=== PATIENT | female | born 1935 | race Caucasian/White ===

== ENCOUNTER 2017-01-13 11:33 | Outpatient (CLI) ==
[2013-07-23 11:57] VITALS: BMI 28.1
--- NOTE | 2017-01-13 12:27 | DI ---
EXAM: RIGHT ANKLE THREE VIEWS HISTORY: Pain, previous injury. FINDINGS: Nonstandard patient positioning limits image quality. Cannot exclude a distal fibular fr acture with mild distraction. There is a small fracture at the base of the fifth metatarsal suggest ed. Bones are demineralized. There is no joint effusion. Generalized soft tissue edema. IMPRESSION: Limited exam. Cannot exclude a distal fibular fracture. There appears to be a small fracture at th e base of the fifth metatarsal.
--- NOTE | 2017-01-13 12:27 | DI ---
EXAM: Three views of the right foot. History: Right foot trauma. Comparison: Right ankle radiograph 01/13/2017 Findings: Osteopenia. Diffuse soft tissue swelling. Nondisplaced fracture at the first metatarsal base. The third metatarsal head is flattened. No dislocation. Small plantar spur. Impression: 1. Nondisplaced fracture at the first metatarsal base. 2. Flattening of the third metatarsal head consistent with Freiberg infraction. 3. Diffuse soft tissue swelling.
== END 2017-01-13 11:34 | disposition home or self-care (01) ==
LOC: RAD 11:33
PROVIDERS: ATTEND Emergency Medicine
DX: S99.921A Unspecified injury of right foot, initial encounter (principal); S99.911A Unspecified injury of right ankle, initial encounter

== ENCOUNTER 2017-01-14 13:06 | Outpatient (CLI) | payer OTHER ==
[2013-07-23 11:57] VITALS: BMI 28.1
--- NOTE | 2017-01-14 13:59 | DI ---
EXAM: Right lower leg. Two-view HISTORY: Injury COMPARISON: Radiograph 01/13/2017 FINDINGS: Bones are demineralized. A distal fibular fracture cannot be excluded as described on rad iograph ankle 1 day prior. This region is poorly visualized on the current examination Moderate oste oarthritis of the knee. Mild osteoarthritis of the ankle. Mild posterior calcaneal enthesopathy. S oft tissue calcifications may be vascular atherosclerosis and/or related to venous stasis. IMPERSSION: 1. A distal fibular fracture cannot be excluded as described on radiograph ankle 1 day prior. This region is poorly visualized on the current examination. 2. Osteoarthritis of the knee and ankle. 3. Bones are demineralized.
== END 2017-01-14 13:07 | disposition home or self-care (01) ==
LOC: RAD 13:06
PROVIDERS: ATTEND Emergency Medicine
DX: S89.91XD Unspecified injury of right lower leg, subsequent encounter (principal)

== ENCOUNTER 2017-02-14 10:12 | Inpatient (IN) ==
[2017-02-14 11:53] VITALS: BMI 28.8
[2017-02-14] MEDS ORDERED: TYLENOL PO PRN (12:53)
[2017-02-14] MEDS ORDERED: FENOFIBRATE NANOCRYSTALLIZED 160 MG PO SCH (13:00)
[2017-02-14 13:40] LABS: BASOPHILS % (AUTO) 0.4 % (0.0-3.0); EOSINOPHILS % (AUTO) 0.3 % (0.0-7.0); HEMATOCRIT 31.9 % (37.0-47.0); HEMOGLOBIN 11.2 g/dl (12.0-16.0); IMMATURE GRANULOCYTE % (AUTO) 0.6 % (0.0-5.0); LYMPHOCYTES # (AUTO) 1.1 K/uL (0.60-3.4); LYMPHOCYTES % (AUTO) 9.7 (10.0-50.0); MEAN CORPUSCULAR HEMOGLOBIN 30.1 pg (27.0-31.0); MEAN CORPUSCULAR HGB CONC 35.1 (31.8-35.4); MEAN CORPUSCULAR VOLUME 85.8 fl (81.0-99.0); MONOCYTES # (AUTO) 0.8 K/uL (0.4-2.0); MONOCYTES % (AUTO) 6.9 (0-10); NEUTROPHILS # (AUTO) 8.9 K/ul (2.0-6.9); NEUTROPHILS % (AUTO) 82.1; PLATELET COUNT 230 10^3/uL (140-440); RED BLOOD COUNT 3.72 10^6/ul (4.20-5.40); WHITE BLOOD COUNT 10.84 K/ul (4.6-10.2)
[2017-02-14 13:57] LABS: ALBUMIN 3.2 g/dL (3.4-5.0); ALBUMIN/GLOBULIN RATIO 0.82; ANION GAP 14.7; BILIRUBIN,TOTAL 0.48 mg/dL (0.00-1.20); BUN/CREATININE RATIO 8.69; CALCIUM 9.4 mg/dL (8.2-10.2); CREATININE 0.69 mg/dL (0.60-1.30); POTASSIUM 3.7 mmol/L (3.5-5.10); TOTAL PROTEIN 7.1 g/dL (5.8-8.1); TROPONIN I 0.017 ng/ml (0.0000-0.4000)
--- NOTE | 2017-02-14 14:59 | CT ---
EXAM: CT chest without contrast HISTORY: Shortness of breath and cough COMPARISON: None TECHNIQUE: Serial axial images of the chest were obtained from the lung apices to the upper abdomen without contrast. These were viewed in multiple planes. FINDINGS: The thyroid is normal. The visualized vessels are unremarkable without aneurysm or stenos is. The heart is normal in size without pericardial effusion. There are no pathologically enlarged mediastinal or hilar lymph nodes. There is fluid in the esophagus. There is a njlotwgo-[id number]-[id number] hiatal hernia. The lumen is not well visualized. There is no pneumothorax or pleural effusion. There is airway thickening with central lobular ground -glass and nodularity in the lower lobes in the lingula. Minimal airway thickening is noted in the r ight middle lobe. The airways are patent. There is degenerative disease of the thoracic spine with kyphosis. There is hazy ground-glass in the mid abdominal mesentery. There is a low attenuation exophytic lesion of the superior pole of the rig ht kidney measuring 1.7 cm in diameter. Hounsfield units are consistent with a cyst. IMPRESSION: 1. Airway thickening in the lower lobes and lingula with patchy airway thickening and questionable d eveloping consolidation consistent with small airways infection versus changes of aspiration.. 2. There is a rfujxhkv-bh-hkizs hiatal hernia with the lumen not visualized and soft tissue cannot b e excluded. There is fluid in the esophagus proximal to the hiatal hernia. 3. Hazy ground-glass in the mesentery may represent mild adenitis. The right renal cyst is present.
[2017-02-14] MEDS: ROCEPHIN 1 GM in SODIUM CHLORIDE 50 ML IV SCH (15:20)
[2017-02-14] MEDS: SODIUM CHLORIDE 1,000 ML IV SCH (15:22)
[2017-02-14] MEDS: TESSALON PERLES PO SCH ×2 (15:23→20:46)
[2017-02-14] MEDS: CLARITIN PO SCH (15:23)
[2017-02-14] MEDS: SOLU-MEDROL 40 MG IVP SCH ×2 (15:23→20:48)
[2017-02-14] MEDS: NORVASC PO SCH (15:24)
[2017-02-14] MEDS: ZITHROMAX PO SCH (15:24)
[2017-02-14] MEDS: FERROUS SULFATE PO SCH ×2 (15:24→20:47)
[2017-02-14] MEDS: COLACE PO SCH (15:24)
[2017-02-14] MEDS: DUONEB NEB SCH ×2 (16:28→23:01)
[2017-02-14] MEDS: MUCINEX PO SCH (20:47)
[2017-02-14] MEDS ORDERED: NON-FORMULARY MEDICATION (Ferrous Sulfate [Ferrous Sulfate] 325 MG) PO SCH ×22 (21:00)
[2017-02-14 21:45] LABS: ADD URINE MICROSCOPIC YES; BILIRUBIN,URINE Negative (NEGATIVE); KETONES,URINE Negative (NEGATIVE); LEUKOCYTE ESTERASE ,URINE Trace (NEGATIVE); NITRITE,URINE Negative (NEGATIVE); PH,URINE 7.5 (5-9); PROTEIN,URINE Negative (NEGATIVE); URINE, BLOOD Negative (NEGATIVE)
[2017-02-15] MEDS: SODIUM CHLORIDE 1,000 ML IV SCH ×3 (04:24→21:30)
[2017-02-15] MEDS: SOLU-MEDROL 40 MG IVP SCH ×3 (04:25→21:36)
[2017-02-15] MEDS: DUONEB NEB SCH ×4 (04:58→23:06)
[2017-02-15] MEDS: LASIX TAB PO SCH (06:00)
[2017-02-15] MEDS: PROTONIX PO SCH (06:00)
[2017-02-15 07:49] LABS: BASOPHILS % (AUTO) 0.1 % (0.0-3.0); EOSINOPHILS % (AUTO) 0.1 % (0.0-7.0); HEMATOCRIT 28.6 % (37.0-47.0); HEMOGLOBIN 10.1 g/dl (12.0-16.0); IMMATURE GRANULOCYTE % (AUTO) 1.8 % (0.0-5.0); LYMPHOCYTES # (AUTO) 0.6 K/uL (0.60-3.4); LYMPHOCYTES % (AUTO) 3.3 (10.0-50.0); MEAN CORPUSCULAR HEMOGLOBIN 30.4 pg (27.0-31.0); MEAN CORPUSCULAR HGB CONC 35.3 (31.8-35.4); MEAN CORPUSCULAR VOLUME 86.1 fl (81.0-99.0); MONOCYTES # (AUTO) 0.4 K/uL (0.4-2.0); MONOCYTES % (AUTO) 2.4 (0-10); NEUTROPHILS # (AUTO) 15.7 K/ul (2.0-6.9); NEUTROPHILS % (AUTO) 92.3; PLATELET COUNT 220 10^3/uL (140-440); RED BLOOD COUNT 3.32 10^6/ul (4.20-5.40); WHITE BLOOD COUNT 16.94 K/ul (4.6-10.2)
[2017-02-15 08:00] LABS: ALBUMIN 2.6 g/dL (3.4-5.0); ALBUMIN/GLOBULIN RATIO 0.74; BILIRUBIN,TOTAL 0.32 mg/dL (0.00-1.20); BUN/CREATININE RATIO 12.9; CALCIUM 8.9 mg/dL (8.2-10.2); CREATININE 0.62 mg/dL (0.60-1.30); TOTAL PROTEIN 6.1 g/dL (5.8-8.1)
[2017-02-15] MEDS ORDERED: NON-FORMULARY MEDICATION (Esomeprazole Magnesium [Nexium] 40 MG) PO SCH ×22 (09:00)
[2017-02-15] MEDS ORDERED: LASIX TAB PO SCH (09:00)
[2017-02-15] MEDS: ROCEPHIN 1 GM in SODIUM CHLORIDE 50 ML IV SCH (09:20)
[2017-02-15] MEDS: MUCINEX PO SCH ×2 (09:21→21:36)
[2017-02-15] MEDS: COLACE PO SCH (09:21)
[2017-02-15] MEDS: FERROUS SULFATE PO SCH ×2 (09:21→21:36)
[2017-02-15] MEDS: CLARITIN PO SCH (09:21)
[2017-02-15] MEDS: TESSALON PERLES PO SCH ×3 (09:22→21:36)
[2017-02-15] MEDS: TRIGLIDE PO SCH (09:23)
[2017-02-15] MEDS: ZITHROMAX PO SCH (09:23)
[2017-02-15] MEDS: ZESTRIL PO SCH (09:23)
[2017-02-15] MEDS: NORVASC PO SCH (09:27)
[2017-02-15] MEDS: HUMULIN R SUBCUT PRN ×3 (12:02→20:39)
[2017-02-16 04:30] LABS: BASOPHILS % (AUTO) 0.1 % (0.0-3.0); EOSINOPHILS # (AUTO) 0.1 K/ul (0.0-0.7); EOSINOPHILS % (AUTO) 0.3 % (0.0-7.0); HEMATOCRIT 27.4 % (37.0-47.0); HEMOGLOBIN 9.5 g/dl (12.0-16.0); IMMATURE GRANULOCYTE % (AUTO) 0.7 % (0.0-5.0); LYMPHOCYTES # (AUTO) 0.6 K/uL (0.60-3.4); LYMPHOCYTES % (AUTO) 3.7 (10.0-50.0); MEAN CORPUSCULAR HEMOGLOBIN 29.9 pg (27.0-31.0); MEAN CORPUSCULAR HGB CONC 34.7 (31.8-35.4); MEAN CORPUSCULAR VOLUME 86.2 fl (81.0-99.0); MONOCYTES # (AUTO) 0.8 K/uL (0.4-2.0); NEUTROPHILS # (AUTO) 14.9 K/ul (2.0-6.9); NEUTROPHILS % (AUTO) 90.2; PLATELET COUNT 207 10^3/uL (140-440); RED BLOOD COUNT 3.18 10^6/ul (4.20-5.40); WHITE BLOOD COUNT 16.48 K/ul (4.6-10.2)
[2017-02-16 04:50] LABS: ALBUMIN 2.6 g/dL (3.4-5.0); ALBUMIN/GLOBULIN RATIO 0.76; BILIRUBIN,TOTAL 0.23 mg/dL (0.00-1.20); BUN/CREATININE RATIO 22.03; CALCIUM 9.2 mg/dL (8.2-10.2); CREATININE 0.59 mg/dL (0.60-1.30)
[2017-02-16] MEDS: DUONEB NEB SCH ×4 (05:00→23:52)
[2017-02-16] MEDS: SOLU-MEDROL 40 MG IVP SCH ×3 (06:13→20:28)
[2017-02-16] MEDS: HUMULIN R SUBCUT PRN ×4 (06:14→20:29)
[2017-02-16] MEDS: PROTONIX PO SCH (06:14)
[2017-02-16] MEDS: LASIX TAB PO SCH (06:15)
[2017-02-16] MEDS: TESSALON PERLES PO SCH ×3 (09:37→20:28)
[2017-02-16] MEDS: ROCEPHIN 1 GM in SODIUM CHLORIDE 50 ML IV SCH (09:37)
[2017-02-16] MEDS: NORVASC PO SCH (09:37)
[2017-02-16] MEDS: TRIGLIDE PO SCH (09:37)
[2017-02-16] MEDS: ZESTRIL PO SCH (09:37)
[2017-02-16] MEDS: FERROUS SULFATE PO SCH ×2 (09:37→20:29)
[2017-02-16] MEDS: ZITHROMAX PO SCH (09:38)
[2017-02-16] MEDS: MUCINEX PO SCH ×2 (09:38→20:28)
[2017-02-16] MEDS: COLACE PO SCH (09:38)
[2017-02-16] MEDS: CLARITIN PO SCH (09:38)
[2017-02-16] MEDS: VALIUM PO SCH (20:27)
[2017-02-16] MEDS ORDERED: VALIUM PO SCH (21:00)
[2017-02-16] MEDS: SODIUM CHLORIDE 1,000 ML IV SCH (23:09)
[2017-02-17] MEDS: DUONEB NEB SCH ×4 (05:02→23:10)
[2017-02-17] MEDS: PROTONIX PO SCH (06:00)
[2017-02-17] MEDS: SOLU-MEDROL 40 MG IVP SCH ×3 (06:00→21:11)
[2017-02-17] MEDS: LASIX TAB PO SCH (06:01)
[2017-02-17 06:23] LABS: BASOPHILS % (AUTO) 0.1 % (0.0-3.0); HEMATOCRIT 26.7 % (37.0-47.0); HEMOGLOBIN 9.3 g/dl (12.0-16.0); IMMATURE GRANULOCYTE % (AUTO) 1.3 % (0.0-5.0); LYMPHOCYTES # (AUTO) 1.1 K/uL (0.60-3.4); MEAN CORPUSCULAR HEMOGLOBIN 29.8 pg (27.0-31.0); MEAN CORPUSCULAR HGB CONC 34.8 (31.8-35.4); MEAN CORPUSCULAR VOLUME 85.6 fl (81.0-99.0); MONOCYTES # (AUTO) 0.4 K/uL (0.4-2.0); MONOCYTES % (AUTO) 3.6 (0-10); NEUTROPHILS # (AUTO) 10.4 K/ul (2.0-6.9); PLATELET COUNT 226 10^3/uL (140-440); RED BLOOD COUNT 3.12 10^6/ul (4.20-5.40); WHITE BLOOD COUNT 12.05 K/ul (4.6-10.2)
[2017-02-17] MEDS: HUMULIN R SUBCUT PRN ×4 (06:47→21:17)
[2017-02-17 06:48] LABS: ALBUMIN 2.5 g/dL (3.4-5.0); ALBUMIN/GLOBULIN RATIO 0.81; ANION GAP 12.5; BILIRUBIN,TOTAL 0.2 mg/dL (0.00-1.20); BUN/CREATININE RATIO 22.8; CALCIUM 8.9 mg/dL (8.2-10.2); CREATININE 0.57 mg/dL (0.60-1.30); POTASSIUM 3.5 mmol/L (3.5-5.10); TOTAL PROTEIN 5.6 g/dL (5.8-8.1)
[2017-02-17] MEDS: TRIGLIDE PO SCH (08:52)
[2017-02-17] MEDS: NORVASC PO SCH (08:52)
[2017-02-17] MEDS: ROCEPHIN 1 GM in SODIUM CHLORIDE 50 ML IV SCH (08:52)
[2017-02-17] MEDS: CLARITIN PO SCH (08:52)
[2017-02-17] MEDS: TESSALON PERLES PO SCH ×3 (08:53→21:11)
[2017-02-17] MEDS: COLACE PO SCH (08:53)
[2017-02-17] MEDS: FERROUS SULFATE PO SCH ×2 (08:53→21:10)
[2017-02-17] MEDS: VALIUM PO SCH ×2 (08:53→21:10)
[2017-02-17] MEDS: MUCINEX PO SCH ×2 (08:53→21:10)
[2017-02-17] MEDS: ZESTRIL PO SCH (08:53)
[2017-02-17] MEDS: ZITHROMAX PO SCH (08:53)
[2017-02-17 11:47] LABS: OCCULT BLOOD INTERNAL QC 1 INTERNAL QC VALID; OCCULT BLOOD SAMPLE 1 POSITIVE (NEGATIVE)
--- NOTE | 2017-02-17 13:14 | RS.PTINEVL ---
Subjective - Patient information Date of Evaluation: 02/17/17 Date of Arrival on Unit: 02/14/17 Admitted From:: Home Usual Living Arrangement: Alone Living Arrangement Comments: pt lives alone in housing, no steps. pt has [employer] worker 3 hours a day 5 days a week. Home Environment: Apartment Medical History: Hypertension, Arthritis Medical History Comments:: chronic kidney disease, dyslipidemia LATEX ALLERGY?: No Surgical History: Hip Replacement Subjective Information/ Patient Comments:: pt admitted from home after being home approx [place] [facility] [place] being [place] [facility] [place] with fx R foot. pt dx URI, pneumonia, possible aspiration, Large hiatal hernia, possible mild adenitis - Level of function Prior to this admission, the patient could do the following:: Independent Ambulation Abilities prior to this admission: patient had assist with bathing, cooking and cleaning at home 5x a week. Current Level of Function: Partially Dependent Current Equipment Used at Home: Rolling walker Interventions - Objective Patient Orientation: Person, Place, Time, Situation Current Interventions: IV's, Oxygen, Telemetry Range of Motion - ROM Right Upper Extremity AROM: WFL's Left Upper Extremity AROM: WFL's Right Lower Extremity AROM: Slight limitation (WFL's except R ankle DF to neutral only) Left Lower Extremity AROM: WFL's Muscle Strength - Muscle Strength Right Upper Extremity Strength: Mild Weakness (shld flex 3+/5, elbow flex/ext 4- /5, decreased auditing coder strength) Left Upper Extremity Strength: Mild Weakness (shld flex 3+/5, elbow flex/ext 3+/ 5 decreased auditing coder strength) Right Lower Extremity Strength: Mild Weakness (RLE 4/5, except R ankle DF3/5, PF 4-/5) Left Lower Extremity Strength: Mild Weakness (LLE 4/5) Sensation - Sensation Right Upper Extremity Sensation: Intact/Normal Left Upper Extremity Sensation: Intact/Normal Right Lower Extremity Sensation: Impaired Left Lower Extremity Sensation: Impaired Balance - Sitting Balance and Reactions Static Sitting Balance: Good Dynamic Sitting Balance: Fair - Standing Balance and Reactions Static Standing Balance: Fair Dynamic Standing Balance: Fair - Comments Balance Assessment Comments: TUG 52 secs Functional Mobility - Bed Mobility Rolling R/L: CGA Scooting: CGA Supine to Sit: Min Assist Sit to Supine: Min Assist - Transfers Sit to Stand: Min Assist Stand to Sit: Min Assist - Safety Awareness Safety Awareness: Good Ambulation - Ambulation Assistive Device Used: Rolling Walker Orthotic/Prosthetic Device: No Distance: 130ft Assistance needed with Ambulation: CGA Gait Deviations: Forward posture, Short stride Ambulation Comments: pt requires verbal cues to correct posture as well as positioning of rwx. Treatment time - Time with patient Total treatment time: 29 (pt performed BLE AP, LAQ, seated hip flex, HS, hip abd /add x 15 reps) Patient Education - Education Patient Education: Education of Plan of Care Teaching Recipient: Patient Teaching Methods: Discussion, Demonstration Assessment - Assessment Problem List:: Decreased level of function, Decreased safety/Risk of falls, Weakness Rehab Potential: Good Further Therapy Indicated?: Yes Short Term Goals GOAL #1: pt to transfer sup to/from sit to/from stand SBA Goal to be met by: 02/19/17 GOAL #2: pt demonstrate independence with rolling and scooting up in bed. Goal to be met by: 02/19/17 GOAL #3: pt amb with rwx 150ft with no loss of balance with CGA Goal to be met by: 02/19/17 Long-Term Goals GOAL #1: pt transfer sup to/from sit to/from stand independently Goal to be met by: 02/22/17 GOAL #2: pt amb with rwx functional distances SBA with no loss of balance Goal to be met by: 02/22/17 GOAL #3: pt demonstrate improved dyn stand balance as noted by TUG < 45secs Goal to be met by: 02/22/17 Plan Plan of Care: Therapeutic EX, Therapeutic Activity Other:: Gait training Frequency of Treatment: 1-2 X day, as tolerated Duration of Treatment: 1 Week Anticipated Discharge Destination: Home (home with home care PT)
[2017-02-17] MEDS: SODIUM CHLORIDE 1,000 ML IV SCH ×2 (14:01→23:35)
--- NOTE | 2017-02-17 15:17 | PN ---
DATE OF SERVICE:02/15/17 SUBJECTIVE: The patient was admitted from the [facility] for the upper respiratory infection and the questionable pneumonia. CAT scan showed questionable infiltrates in the lung and a large hiatal hernia. Today morning she says that she has been breathing better with less coughing but still weak and tired. REVIEW OF SYSTEMS: CONSTITUTIONAL: No fever, no chills. HEENT: Normal. ENDOCRINE: No weight gain, no weight loss. CVS: No angina symptoms. No CHF symptoms. No palpitations. No atypical chest pain for CAD. No shortness of breath. No PND, no orthopnea. RESPIRATORY: No cough, no hemoptysis. GI: No nausea, no vomiting. No abdominal pain. : No hematuria. No polyuria. MUSCULOSKELETAL:. No joint swelling. PSYCHIATRIC: Not anxious. No depression. No suicidal thoughts. No homicidal thoughts. SKIN: Intact. No rash. PHYSICAL EXAMINATION: V/S: Blood pressure 117/70, respiratory rate 18, heart rate 87, temperature 97.6 with saturation 96% on 2 liters. HEENT: Normocephalic, atraumatic. Mucosa dry. Pallor positive. No icterus. NECK: Supple. No JVD, no carotid bruit. No lymphadenopathy. LUNGS: Bilateral entry is decreased with basilar crackles. No rales or rhonchi. HEART: S1, S2 normal. No S3. No murmur, gallop or regurgitation. ABDOMEN: Soft, nontender. Bowel sounds active. No rigidity. No rebound or guarding. No CVA tenderness. EXTREMITIES: No clubbing, cyanosis or pedal edema. MUSCULOSKELETAL: No joint swelling. NEUROLOGIC: Awake, alert, oriented times three. No focal deficit. LYMPHATIC: No lymph nodes palpable. SKIN: Intact. LABS: Sodium 130, potassium 4.0, chloride 96, bicarb 25, BUN 8, creatinine 0.62, glucose 300, WBC 16.94, hgb 10.1, hct 28.6, plt count 220 and urine negative. ASSESSMENT: 1. Community acquired pneumonia 2. Large Hiatal hernia 3. Anemia rule out GI bleed 4. Hyperglycemia from the steroids 5. Hypertension PLAN: 1. Will do A1c 2. Continue Rocephin and Azithromycin 3. DUO NEBS 4. Tessalon Perles 5. IV fluids will decrease them 40ml per hour 6. Will follow the patient in daily rounds. TIME SPENT: More than 35 minutes MTDD
--- NOTE | 2017-02-17 16:31 | DI ---
Exam: Single x-ray of the chest. Comparison: CT chest performed 02/14/2017. Reason for exam: Pneumonia. FINDINGS: No pneumothorax. Layering density in the right lung base with patchy airspace opacities bi laterally. The cardiac silhouette is not enlarged. The imaged osseous structures appear grossly unr emarkable without acute fracture. Impression: Imaging findings are consistent with a right-sided pleural effusion with basilar atelectasis/pneumoni a.
[2017-02-18 00:03] LABS: OCCULT BLOOD INTERNAL QC 2 INTERNAL QC VALID; OCCULT BLOOD INTERNAL QC 3 INTERNAL QC VALID; OCCULT BLOOD SAMPLE 2 NO SPECIMEN RECEIVED (NEGATIVE); OCCULT BLOOD SAMPLE 3 NO SPECIMEN RECEIVED (NEGATIVE)
[2017-02-18] MEDS: DUONEB NEB SCH ×4 (04:47→23:10)
[2017-02-18 05:29] LABS: BASOPHILS % (AUTO) 0.1 % (0.0-3.0); HEMATOCRIT 31.2 % (37.0-47.0); HEMOGLOBIN 10.6 g/dl (12.0-16.0); LYMPHOCYTES # (AUTO) 1.1 K/uL (0.60-3.4); LYMPHOCYTES % (AUTO) 12.8 (10.0-50.0); MEAN CORPUSCULAR HEMOGLOBIN 29.7 pg (27.0-31.0); MEAN CORPUSCULAR VOLUME 87.4 fl (81.0-99.0); MONOCYTES # (AUTO) 0.4 K/uL (0.4-2.0); MONOCYTES % (AUTO) 4.2 (0-10); NEUTROPHILS # (AUTO) 6.8 K/ul (2.0-6.9); NEUTROPHILS % (AUTO) 81.9; PLATELET COUNT 259 10^3/uL (140-440); RED BLOOD COUNT 3.57 10^6/ul (4.20-5.40); WHITE BLOOD COUNT 8.25 K/ul (4.6-10.2)
[2017-02-18] MEDS: LASIX TAB PO SCH (05:40)
[2017-02-18] MEDS: SOLU-MEDROL 40 MG IVP SCH ×3 (05:40→21:00)
[2017-02-18] MEDS: PROTONIX PO SCH ×2 (05:40→16:11)
[2017-02-18 05:48] LABS: ALBUMIN 2.7 g/dL (3.4-5.0); ALBUMIN/GLOBULIN RATIO 0.87; ANION GAP 14.9; BILIRUBIN,TOTAL 0.25 mg/dL (0.00-1.20); BUN/CREATININE RATIO 27.11; CALCIUM 9.1 mg/dL (8.2-10.2); CREATININE 0.59 mg/dL (0.60-1.30); POTASSIUM 3.9 mmol/L (3.5-5.10); TOTAL PROTEIN 5.8 g/dL (5.8-8.1)
[2017-02-18] MEDS: HUMULIN R SUBCUT PRN ×4 (06:35→21:00)
[2017-02-18] MEDS: ROCEPHIN 1 GM in SODIUM CHLORIDE 50 ML IV SCH (09:23)
[2017-02-18] MEDS: COLACE PO SCH (09:27)
[2017-02-18] MEDS: FERROUS SULFATE PO SCH ×2 (09:27→21:01)
[2017-02-18] MEDS: ZESTRIL PO SCH (09:27)
[2017-02-18] MEDS: MUCINEX PO SCH ×2 (09:27→21:01)
[2017-02-18] MEDS: VALIUM PO SCH ×2 (09:28→21:01)
[2017-02-18] MEDS: CLARITIN PO SCH (09:29)
[2017-02-18] MEDS: TRIGLIDE PO SCH (09:29)
[2017-02-18] MEDS: NORVASC PO SCH (09:30)
[2017-02-18] MEDS: ZITHROMAX PO SCH (09:30)
[2017-02-18] MEDS: TESSALON PERLES PO SCH ×3 (09:30→21:01)
--- NOTE | 2017-02-18 11:43 | PN ---
DATE OF SERVICE: 02/16/17 SUBJECTIVE: The patient was admitted with COPD exacerbation and bronchitis/pneumonia. The CAT scan also showed the huge hiatal hernia with a lot of fluid there. Still having cough and congestion and getting clear to yellow phlegm. The hgb is gradually trending down. Hgb initially was 11.2 now it is 9.5. BUN and creatinine is normal. REVIEW OF SYSTEMS: CONSTITUTIONAL: No fever, no chills. HEENT: Normal. ENDOCRINE: No weight gain, no weight loss. CVS: No angina symptoms. No CHF symptoms. No palpitations. No atypical chest pain for CAD. No shortness of breath. No PND, no orthopnea. RESPIRATORY: No cough, no hemoptysis. GI: No nausea, no vomiting. No abdominal pain. : No hematuria. No polyuria. MUSCULOSKELETAL:. No joint swelling. PSYCHIATRIC: Not anxious. No depression. No suicidal thoughts. No homicidal thoughts. SKIN: Intact. No rash. PHYSICAL EXAMINATION: V/S: Blood pressure 129/62, respiratory rate 24, heart rate 86 and temperature 98.2 with saturation 98%. HEENT: Normocephalic, atraumatic. Mucosa dry. Sinus congestion is seen. NECK: Supple. No JVD, no carotid bruit. No lymphadenopathy. LUNGS: Decreased and basilar crackles. No rales or rhonchi. HEART: S1, S2 normal. No S3. No murmur, gallop or regurgitation. ABDOMEN: Soft, nontender. Bowel sounds active. No rigidity. No rebound or guarding. No CVA tenderness. EXTREMITIES: No clubbing, cyanosis or pedal edema. MUSCULOSKELETAL: No joint swelling. NEUROLOGIC: Awake, alert, oriented times three. No focal deficit. LYMPHATIC: No lymph nodes palpable. SKIN: Intact. LABS: Sodium 132, potassium 4.0, chloride 99, bicarb 23, BUN 13, creatinine 0.59, WBC 16.48, hgb 9.5, hct 27.4 and plt count 207. ASSESSMENT: 1. BOWLING [employer] INST[employer]ER exacerbation secondary the pneumonia 2. Large hiatal hernia 3. Anemia rule out GI bleed, will do the anemia profile, stool occult blood test 4. Coronary artery disease 5. Hypertension 6. Recent history of the right ankle fracture 7. Yee's esophagus 8. Hiatal hernia PLAN: 1. Continue the Rocephin and DUO NEBS 2. IV fluids at 40ml per hour 3. Solu-Medrol 40mg twice a day 4. Lasix 20mg Po daily 5. Daily I&O's Will follow the patient in daily rounds. TIME SPENT: More than 30 minutes MTDD
--- NOTE | 2017-02-18 14:16 | RS.BEDDYS ---
Subjective Number of treatment sessions: 1 Date of Evaluation: 02/18/17 Date of Onset/Injury/Change in Status: 02/14/17 Surgery Performed?: No Treatment Diagnosis: Dysphagia Prior Level of Function.....Patient was independent with: ADL's (Prior to admission the patient had recently discharged home from a retirement facility (approx 3-4) days ago completing ADL's with modified independence. The patient reported that she has assistance 5x/wk from senior services who complete home making tasks for her.) Current Level of Function: The patient is an 81 year old female who was admitted to [facility] on 02/14/17 from [facility] for increased shortness of breath and cough. The patient was referred for ST evaluation due to reports of difficulty swallowing medications, history of hiatal hernia and Yee's esophagus. The patient is currently receiving a regular diet with thin liquid and reports that when home she consumes regular,soft foods. It should be noted that the patient is able to verbalize foods that cause irritation within the esophagus and avoids when possible. Current Diet: The patient is currently receiving a regular diet with thin liquids. Current Subjective/complaints:: Nursing reports wet vocal quality, large, fluid- filled hiatal hernia and Yee's esophagus. Medical History Comments:: The patient was admitted to [facility] for COPD exacerbation secondary to pneumonia. The patient's medical history is also significant for large hiatal hernia, HTN, Yee's esophagus, hyperglycemia from steriods Hx Home Medications: Current medications include Tylenol, Duoneb, Norvasc, Zithromax, Tessalon Perles, Valium, Lasix, Mucinex, Zestril, Protonix. Please refer to chart for complete list of home/current medications. Patient's Goals: The patient will demonstrate safe swallowing of regular solids with thin liquids using compensatory strategies independently to reduce s/s of wet/gurgle vocal quality. General Information - General Denture Type: Full- Upper & Lower Patient Orientation: Situation Ability to Follow Directions: Excellent Is Patient able to Repeat Directions?: Yes Oral Expression Ability: No Impairment - Voice Voice Quality: Weak (The patient demonstrated wet/gurgle vocal quality throughout the entire visit which was cleared with cues to clear and swallow. ) Voice Pitch: Normal Voice Loudness: Normal Oral-Facial Assessment - Face Facial Symmetry: Symmetrical Facial Movement: Controlled - Dental/Labial Mouth Occlusion: Normal Teeth Characteristics: Dental Appliance (Patient had upper and lower dentures present during this evaluation. ) Lip Protrusion: Normal Lip Retraction: Normal Puff Cheeks: Normal - Lingual Protrusion: Weak Retraction: Weak Tip Lateralization: Weak Repeated Tip Lateralization: Weak Tip Elevation: Weak Repeated Tip Elevation: Weak (The patient demonstrates weak lingual strength/ ROM resulting in minimal amounts of stasis present after swallow. Patient was independent with clearing stasis with double swallow or liquid wash.) Food Presentation - Solids Food Presented: Regular (Patient presented with regular solids via 1/2 tsp demontrating decreased manipulation resulting in minimal amounts of stasis present after propulsion. The patient was independent with clearing stasis using double swallow or liquid wash.) - Liquids Liquid Presented: Thin (The patient consumed thin liquids via cup and straw demonstrating no overt s/s of aspiration or difficulty.) - Recommendations: Dysphagia Evaluation Dietary Recommendations: Normal, Dysphagia Mechanical Soft (The patient will receive mechanical soft solids (per her request) with thin liquids. The patient may receive regular solids upon request as swallow abilites are within functional limits for both consistencies. ) Dysphagia Swallow Precautions/Strategies: Small Bites and Sips, Alternate Liquids/Solids - Summary Dysphagia Evaluation Summary: The patient was seen this date for bedside dysphagia evaluation due nursing reports of wet vocal quality, large, fluid- filled hiatal hernia and hx of Barretts esophagus. The patient was admitted on 02/14/17 from [facility] due to increased shortness of breath and cough. The patient is currently receiving a regular diet with thin liquids and is independent with self feeding. The patient reported to the bar helper that at times she uses a chopper when at home. Oral [facility] assessment revealed the patient to have upper and lower dentures present. The patient demonstrated labial strength that is within functional limits. Mild weakness in lingual strength was noted with protrusion/retraction, lateralization and elevation. Decreased lingual strength impacts bolus manipulation and formation resulting in minimal amounts of stasis present after swallow completion. The patient was independent with clearing stasis using liquid wash and/or double swallow. The patient was presented with regular solids and as aforementioned demonstrated decreased bolus manipulation and formation abilities resulting in minimal amounts of stasis after swallow completion. The patient was independent with use of double swallow and/or liquid wash. The patient was also presented with thin liquids via cup and straw demonstating timely propulsion and no overt s/s of aspiration or difficulty. It should be noted that the patient did display wet/gurgle vocal quality throughout the evaluation which did not appear to be entirely related to swallowing as it was exhibited throughout conversation. Education was performed with the patient on continuing to use compensatory strategies to clear stasis. Education was also performed with the patient on increasing awareness of wet vocal quality and implementing throat clear to reduce/eliminate wetness. Due to history of Yee's esophagus, GERD and fluid -filled hiatal hernia medication review was suggested GERD could be contributing to the wet vocal quality observed. The bar helper was also consulted and asked to visit with the patient to discuss proper management of GERD. Further Therapy Indicated?: No Comments: Education was performed with the patient that no further [employer] SPECIALIST services were recommended at this time; however, if the pneumonia did not improve with medications and GERD management further modifications and services may be warranted. Rehab Potential: Good Functional Reporting G Codes: G8996 Swallow functional limitation at the time of this evaluation is documented as within functional limits 0-19% impaired. Severity Impairment Rationale: 0-19% impaired. Plan Duration of Treatment: One Time Treatment Frequency of Treatment: One time treatment Anticipated Discharge Destination: Home
[2017-02-18] MEDS: SODIUM CHLORIDE 1,000 ML IV SCH ×2 (16:20→21:42)
[2017-02-19] MEDS: DUONEB NEB SCH ×4 (05:05→22:45)
[2017-02-19 05:23] LABS: BASOPHILS % (AUTO) 0.1 % (0.0-3.0); HEMATOCRIT 30.3 % (37.0-47.0); HEMOGLOBIN 10.3 g/dl (12.0-16.0); IMMATURE GRANULOCYTE % (AUTO) 1.4 % (0.0-5.0); LYMPHOCYTES # (AUTO) 1.5 K/uL (0.60-3.4); LYMPHOCYTES % (AUTO) 13.9 (10.0-50.0); MEAN CORPUSCULAR HEMOGLOBIN 29.6 pg (27.0-31.0); MEAN CORPUSCULAR VOLUME 87.1 fl (81.0-99.0); MONOCYTES # (AUTO) 0.6 K/uL (0.4-2.0); MONOCYTES % (AUTO) 5.8 (0-10); NEUTROPHILS # (AUTO) 8.3 K/ul (2.0-6.9); NEUTROPHILS % (AUTO) 78.8; PLATELET COUNT 269 10^3/uL (140-440); RED BLOOD COUNT 3.48 10^6/ul (4.20-5.40); WHITE BLOOD COUNT 10.56 K/ul (4.6-10.2)
[2017-02-19] MEDS: LASIX TAB PO SCH (05:57)
[2017-02-19] MEDS: PROTONIX PO SCH ×2 (05:57→17:48)
[2017-02-19] MEDS: SOLU-MEDROL 40 MG IVP SCH ×3 (05:57→21:19)
[2017-02-19 05:58] LABS: ALBUMIN 2.5 g/dL (3.4-5.0); ALBUMIN/GLOBULIN RATIO 0.86; ANION GAP 13.1; BILIRUBIN,TOTAL 0.27 mg/dL (0.00-1.20); BUN/CREATININE RATIO 30.5; CALCIUM 8.8 mg/dL (8.2-10.2); CREATININE 0.59 mg/dL (0.60-1.30); POTASSIUM 4.1 mmol/L (3.5-5.10); TOTAL PROTEIN 5.4 g/dL (5.8-8.1)
[2017-02-19] MEDS ORDERED: ROBITUSSIN AC SYRUP PO SCH (09:00)
[2017-02-19] MEDS: TESSALON PERLES PO SCH ×3 (09:03→20:48)
[2017-02-19] MEDS: ROCEPHIN 1 GM in SODIUM CHLORIDE 50 ML IV SCH (09:03)
[2017-02-19] MEDS: CLARITIN PO SCH (09:04)
[2017-02-19] MEDS: ZESTRIL PO SCH (09:04)
[2017-02-19] MEDS: TRIGLIDE PO SCH (09:04)
[2017-02-19] MEDS: NORVASC PO SCH (09:04)
[2017-02-19] MEDS: FERROUS SULFATE PO SCH ×2 (09:04→20:47)
[2017-02-19] MEDS: COLACE PO SCH (09:04)
[2017-02-19] MEDS: MUCINEX PO SCH ×2 (09:04→20:48)
[2017-02-19] MEDS: VALIUM PO SCH ×2 (09:05→20:48)
[2017-02-19] MEDS: ROBITUSSIN DM SYRUP PO SCH ×2 (09:20→20:47)
[2017-02-19] MEDS: HUMULIN R SUBCUT PRN ×3 (11:36→20:47)
--- NOTE | 2017-02-19 11:38 | DI ---
EXAM: Chest one view HISTORY: Pneumonia COMPARISON: 02/17/2017 TECHNIQUE: Single view of the chest was performed FINDINGS: Mild bibasilar atelectasis and/or consolidation, slightly improved. Trace right pleural e ffusion. No visible pneumothorax. Heart and mediastinal contour unchanged IMPRESSION: Trace right pleural effusion. Mild bibasilar atelectasis and/or pneumonia, slightly imp roved from prior examination.
--- NOTE | 2017-02-19 14:53 | RS.OTINEVL ---
Subjective - Patient information Date of Evaluation: 02/19/17 Date of Arrival on Unit: 02/17/17 Usual Living Arrangement: Alone Living Arrangement Comments: Pt has addus coming for 3 hours a day, 5days a week for personal assistance. Home Environment: House Medical History: Hypertension, Arthritis Medical History Comments:: The patient was admitted to [facility] for COPD exacerbation secondary to pneumonia. The patient's medical history is also significant for large hiatal hernia, HTN, Yee's esophagus, hyperglycemia from steriods Subjective Information/ Patient Comments:: "I just have trouble getting up." "I am going home from here. I am not going to go back down here to the shelter." - Level of function Prior to this admission, the patient could do the following:: Independent Ambulation Abilities prior to this admission: Pt reports when she was a patient at [facility] she was able to get up and walk with her rollator walker. Since she became sick with pneumonia, she has had increased difficulty of sit to stand. Current Level of Function: Partially Dependent Comments: Is not able to get up from bed side commode independently or her chair. Current Equipment Used at Home: Rolling walker Pain Assessment - Pain Pain Score: 4 Side: right Pain Location Body Site: Elbow Pain Aggravating Factors: ADL's, Changing Position, Walking Pain Alleviating Factors: Medication Interventions - Objective Patient Orientation: Person, Place, Time, Situation Current Interventions: IV's, Oxygen, Telemetry Interventions - ROM Left Upper Extremity AROM: WFL's - Strength Right Upper Extremity Strength: Mild Weakness Left Upper Extremity Strength: Mild Weakness - Sensation Right Upper Extremity Sensation: Intact/Normal Left Upper Extremity Sensation: Intact/Normal Balance - Sitting Balance Static Sitting Balance: Good Dynamic Sitting Balance: Fair - Standing Balance Static Standing Balance: Poor Dynamic Standing Balance: Poor - Comments Balance Assessment Comments: Pt is weak and would benefit from skilled OT to increase independence and safety of functional transfers. ADL Skills - Self Feeding Self Feeding: Independent - Grooming Grooming: Supervision - Bathing Bathing UE: Min Assist Bathing LE: Min Assist, Max Assist - Dressing Dressing UE: Supervision Dressing LE: Max Assist - Toilet Management Toileting Management: Min Assist Functional Mobility - Bed Mobility Rolling R/L: Independent Scooting: Independent Supine to Sit: Independent Sit to Supine: Independent - Transfers Sit to Stand: Max Assist, 1 person assist Stand to Sit: Min Assist Stand Pivot Transfers: Max Assist - Ambulation Weight Bearing Status: FWB Assistive Device Used: Rollator Assistance needed with Ambulation: Min Assist - Safety Awareness Safety Awareness: Good Additional Treatment Performed - Additional units charged ADL: 15 - Time with patient Total treatment time: 27 Activities Patient Interests:: Watching Television Patient Education Patient Education: Education of diagnosis, Home Exercise Program Teaching Recipient: Patient Teaching Methods: Discussion Assessment Problem List:: Requires training/education, Weakness, Pain limits previous level of function Rehab Potential: Good Further Therapy Indicated?: Yes Short Term Goals - Goals GOAL 1: Pt to increase sit to stand to Moderate assistance. Goal to be met by: 02/26/17 GOAL 2: Pt to increase activity tolerance to 15 minutes to increase (I) of ADLS. Goal to be met by: 02/26/17 GOAL 3: Pt to increase BUE strength to 4/5 Goal to be met by: 02/26/17 Skilled Nursing Goals GOAL 1: Pt to increase sit to stand to Moderate assistance. Goal to be met by: 03/04/17 GOAL 2: Pt to increase activity tolerance to 20 minutes to increase (I) of ADLS. Goal to be met by: 03/04/17 GOAL 3: Pt to increase BUE strength to 4+/5 Goal to be met by: 03/04/17 Plan Plan of Care: Therapeutic EX, Neuromuscular Re-Educ, Therapeutic Activity, Self- Care/Home Management Modalities: Hot Pack, Ultrasound Frequency of Treatment: 1-2 X day, as tolerated Duration of Treatment: 2 Weeks Anticipated Discharge Destination: Home
[2017-02-19] MEDS: SODIUM CHLORIDE 1,000 ML IV SCH (21:58)
[2017-02-20] MEDS: DUONEB NEB SCH ×4 (04:58→22:43)
[2017-02-20 05:11] LABS: BASOPHILS % (AUTO) 0.2 % (0.0-3.0); HEMATOCRIT 31.4 % (37.0-47.0); HEMOGLOBIN 10.6 g/dl (12.0-16.0); IMMATURE GRANULOCYTE % (AUTO) 1.9 % (0.0-5.0); LYMPHOCYTES # (AUTO) 1.5 K/uL (0.60-3.4); LYMPHOCYTES % (AUTO) 12.9 (10.0-50.0); MEAN CORPUSCULAR HEMOGLOBIN 29.4 pg (27.0-31.0); MEAN CORPUSCULAR HGB CONC 33.8 (31.8-35.4); MEAN CORPUSCULAR VOLUME 87.2 fl (81.0-99.0); MONOCYTES # (AUTO) 0.5 K/uL (0.4-2.0); MONOCYTES % (AUTO) 4.2 (0-10); NEUTROPHILS # (AUTO) 9.2 K/ul (2.0-6.9); NEUTROPHILS % (AUTO) 80.8; PLATELET COUNT 254 10^3/uL (140-440); WHITE BLOOD COUNT 11.32 K/ul (4.6-10.2)
[2017-02-20 05:45] LABS: ALBUMIN 2.6 g/dL (3.4-5.0); ALBUMIN/GLOBULIN RATIO 0.93; ANION GAP 12.1; BILIRUBIN,TOTAL 0.29 mg/dL (0.00-1.20); BUN/CREATININE RATIO 25.8; CALCIUM 8.8 mg/dL (8.2-10.2); CREATININE 0.62 mg/dL (0.60-1.30); POTASSIUM 4.1 mmol/L (3.5-5.10); TOTAL PROTEIN 5.4 g/dL (5.8-8.1)
[2017-02-20] MEDS: PROTONIX PO SCH ×2 (05:48→16:56)
[2017-02-20] MEDS: SOLU-MEDROL 40 MG IVP SCH ×4 (05:48→21:12)
[2017-02-20] MEDS: LASIX TAB PO SCH (05:48)
[2017-02-20] MEDS: HUMULIN R SUBCUT PRN ×3 (05:56→21:16)
[2017-02-20] MEDS: ROBITUSSIN DM SYRUP PO SCH ×2 (08:21→21:16)
[2017-02-20] MEDS: FERROUS SULFATE PO SCH ×2 (08:22→20:08)
[2017-02-20] MEDS: NORVASC PO SCH (08:22)
[2017-02-20] MEDS: CLARITIN PO SCH (08:22)
[2017-02-20] MEDS: COLACE PO SCH (08:22)
[2017-02-20] MEDS: TESSALON PERLES PO SCH ×3 (08:22→20:08)
[2017-02-20] MEDS: MUCINEX PO SCH ×2 (08:22→20:07)
[2017-02-20] MEDS: ZESTRIL PO SCH (08:22)
[2017-02-20] MEDS: TRIGLIDE PO SCH (08:22)
[2017-02-20] MEDS: ROCEPHIN 1 GM in SODIUM CHLORIDE 50 ML IV SCH (08:23)
[2017-02-20] MEDS: VALIUM PO SCH ×2 (08:23→20:08)
[2017-02-20 09:08] LABS: OCCULT BLOOD INTERNAL QC 1 INTERNAL QC VALID; OCCULT BLOOD SAMPLE 1 NEGATIVE (NEGATIVE)
[2017-02-20] MEDS: KEFLEX PO SCH (20:07)
[2017-02-21] MEDS: SODIUM CHLORIDE 1,000 ML IV SCH (00:05)
[2017-02-21] MEDS: DUONEB NEB SCH ×4 (05:13→23:19)
[2017-02-21] MEDS: SOLU-MEDROL 40 MG IVP SCH ×3 (05:43→21:42)
[2017-02-21] MEDS: PROTONIX PO SCH ×2 (05:43→16:11)
[2017-02-21] MEDS: LASIX TAB PO SCH (05:43)
[2017-02-21 06:34] LABS: BASOPHILS % (AUTO) 0.3 % (0.0-3.0); HEMATOCRIT 32.1 % (37.0-47.0); HEMOGLOBIN 10.9 g/dl (12.0-16.0); IMMATURE GRANULOCYTE % (AUTO) 2.5 % (0.0-5.0); LYMPHOCYTES # (AUTO) 1.7 K/uL (0.60-3.4); LYMPHOCYTES % (AUTO) 12.9 (10.0-50.0); MEAN CORPUSCULAR HEMOGLOBIN 29.4 pg (27.0-31.0); MEAN CORPUSCULAR VOLUME 86.5 fl (81.0-99.0); MONOCYTES # (AUTO) 0.6 K/uL (0.4-2.0); MONOCYTES % (AUTO) 4.7 (0-10); NEUTROPHILS # (AUTO) 10.6 K/ul (2.0-6.9); NEUTROPHILS % (AUTO) 79.6; PLATELET COUNT 250 10^3/uL (140-440); RED BLOOD COUNT 3.71 10^6/ul (4.20-5.40); WHITE BLOOD COUNT 13.28 K/ul (4.6-10.2)
[2017-02-21 06:52] LABS: ALBUMIN 2.7 g/dL (3.4-5.0); ANION GAP 13.5; BILIRUBIN,TOTAL 0.28 mg/dL (0.00-1.20); BUN/CREATININE RATIO 32.07; CALCIUM 8.6 mg/dL (8.2-10.2); CREATININE 0.53 mg/dL (0.60-1.30); POTASSIUM 3.5 mmol/L (3.5-5.10); TOTAL PROTEIN 5.4 g/dL (5.8-8.1)
[2017-02-21 07:41] LABS: OCCULT BLOOD INTERNAL QC 2 INTERNAL QC VALID; OCCULT BLOOD INTERNAL QC 3 INTERNAL QC VALID; OCCULT BLOOD SAMPLE 2 NO SPECIMEN RECEIVED (NEGATIVE); OCCULT BLOOD SAMPLE 3 NO SPECIMEN RECEIVED (NEGATIVE)
[2017-02-21] MEDS: COLACE PO SCH (08:19)
[2017-02-21] MEDS: VALIUM PO SCH ×2 (08:20→21:03)
[2017-02-21] MEDS: NORVASC PO SCH (08:20)
[2017-02-21] MEDS: FERROUS SULFATE PO SCH ×2 (08:20→21:03)
[2017-02-21] MEDS: KEFLEX PO SCH ×2 (08:20→21:03)
[2017-02-21] MEDS: TRIGLIDE PO SCH (08:20)
[2017-02-21] MEDS: MUCINEX PO SCH ×2 (08:20→21:03)
[2017-02-21] MEDS: ZESTRIL PO SCH (08:20)
[2017-02-21] MEDS: TESSALON PERLES PO SCH ×3 (08:20→21:03)
[2017-02-21] MEDS: ROBITUSSIN DM SYRUP PO SCH ×2 (08:20→21:06)
[2017-02-21] MEDS: CLARITIN PO SCH (08:21)
--- NOTE | 2017-02-21 09:48 | PN ---
DATE OF SERVICE: 02/18/17 SUBJECTIVE: The patient was admitted with pneumonia and there was a question that patient maybe aspirating. It is pending to get swallow evaluation today. REVIEW OF SYSTEMS: CONSTITUTIONAL: No fever, no chills. HEENT: Normal. ENDOCRINE: No weight gain, no weight loss. CVS: No angina symptoms. No CHF symptoms. No palpitations. No atypical chest pain for CAD. No shortness of breath. No PND, no orthopnea. RESPIRATORY: No cough, no hemoptysis. GI: No nausea, no vomiting. No abdominal pain. : No hematuria. No polyuria. MUSCULOSKELETAL:. No joint swelling. PSYCHIATRIC: Not anxious. No depression. No suicidal thoughts. No homicidal thoughts. SKIN: Intact. No rash. PHYSICAL EXAMINATION: V/S: Blood pressure 149/80, respiratory rate 20, heart rate 77, temperature 97.3 with saturation 97%. HEENT: Normocephalic, atraumatic. Mucosa dry. Pallor positive. No icterus. NECK: Supple. No JVD, no carotid bruit. No lymphadenopathy. LUNGS: Decreased and basilar crackles right more than the left. No rales or rhonchi. HEART: S1, S2 normal. No S3. No murmur, gallop or regurgitation. ABDOMEN: Soft, nontender. Bowel sounds active. No rigidity. No rebound or guarding. No CVA tenderness. EXTREMITIES: No clubbing, cyanosis or pedal edema. MUSCULOSKELETAL: No joint swelling. NEUROLOGIC: Awake, alert, oriented times three. No focal deficit. LYMPHATIC: No lymph nodes palpable. SKIN: Intact. LABS: WBC 8.25, hgb 10.6, hct 31.2, plt count 259, sodium 135, potassium 3.9, chloride 96, bicarb 28, BUN 16, creatinine 0.59, glucose 173 ASSESSMENT: 1. Community acquired pneumonia 2. Large hiatal hernia 3. Questionable aspiration 4. Recent right ankle fracture which has been cleared from the orthopedic surgeon 5. History of Yee's Esophagus 6. Anemia, blood transfusions in the past, positive occult blood test PLAN: 1. Swallow evaluation 2. Chest x-ray in the morning 3. Continue the Rocephin 4. DUO NEBS 5. Solu-Medrol 40Q 8 hours 6. IV fluids at 40ml per hour 7. Out of bed to chair activity as much as tolerated 8. No anticoagulation, prophylaxis secondary to the GI bleed. TIME SPENT: More than 35 minutes MTDD
--- NOTE | 2017-02-21 09:58 | DI ---
EXAM: Chest two views HISTORY: Pneumonia COMPARISON: 02/19/2017 TECHNIQUE: Two views of the chest were performed FINDINGS: Trace right pleural effusion. Mild bibasilar atelectasis and/or consolidation, mildly imp roved on the left. There is no pleural effusion or pneumothorax. The heart is normal in size. The mediastinal contour is normal. There are no acute abnormalities of the bones. IMPRESSION: Trace right pleural effusion. Mild bibasilar atelectasis and/or pneumonia, mildly impro christi on the left.
[2017-02-21] MEDS: HUMULIN R SUBCUT PRN ×2 (11:17→21:06)
[2017-02-21 20:33] LABS: BILIRUBIN,URINE Negative (NEGATIVE); KETONES,URINE Negative (NEGATIVE); LEUKOCYTE ESTERASE ,URINE Negative (NEGATIVE); NITRITE,URINE Negative (NEGATIVE); PROTEIN,URINE Negative (NEGATIVE); URINE, BLOOD Negative (NEGATIVE)
[2017-02-21 20:34] LABS: ADD URINE MICROSCOPIC NO
[2017-02-22] MEDS: SODIUM CHLORIDE 1,000 ML IV SCH ×2 (00:48→22:28)
[2017-02-22] MEDS: DUONEB NEB SCH ×4 (05:09→23:26)
[2017-02-22] MEDS: SOLU-MEDROL 40 MG IVP SCH ×3 (05:20→20:12)
[2017-02-22] MEDS: LASIX TAB PO SCH (05:31)
[2017-02-22] MEDS: PROTONIX PO SCH ×2 (05:31→16:12)
[2017-02-22] MEDS: HUMULIN R SUBCUT PRN ×4 (05:34→20:15)
[2017-02-22 06:31] LABS: ALBUMIN 2.5 g/dL (3.4-5.0); ANION GAP 13.7; BILIRUBIN,TOTAL 0.28 mg/dL (0.00-1.20); BUN/CREATININE RATIO 32.14; CALCIUM 8.5 mg/dL (8.2-10.2); CREATININE 0.56 mg/dL (0.60-1.30); POTASSIUM 3.7 mmol/L (3.5-5.10)
[2017-02-22 06:47] LABS: BASOPHILS % (AUTO) 0.2 % (0.0-3.0); HEMATOCRIT 35.7 % (37.0-47.0); HEMOGLOBIN 12.1 g/dl (12.0-16.0); IMMATURE GRANULOCYTE % (AUTO) 3.1 % (0.0-5.0); LYMPHOCYTES # (AUTO) 1.8 K/uL (0.60-3.4); LYMPHOCYTES % (AUTO) 12.8 (10.0-50.0); MEAN CORPUSCULAR HEMOGLOBIN 30.1 pg (27.0-31.0); MEAN CORPUSCULAR HGB CONC 33.9 (31.8-35.4); MEAN CORPUSCULAR VOLUME 88.8 fl (81.0-99.0); MONOCYTES # (AUTO) 0.5 K/uL (0.4-2.0); MONOCYTES % (AUTO) 3.9 (0-10); NEUTROPHILS # (AUTO) 10.9 K/ul (2.0-6.9); PLATELET COUNT 229 10^3/uL (140-440); RED BLOOD COUNT 4.02 10^6/ul (4.20-5.40); WHITE BLOOD COUNT 13.64 K/ul (4.6-10.2)
[2017-02-22] MEDS: COLACE PO SCH (09:27)
[2017-02-22] MEDS: KEFLEX PO SCH ×2 (09:28→20:12)
[2017-02-22] MEDS: FERROUS SULFATE PO SCH ×2 (09:28→20:13)
[2017-02-22] MEDS: CLARITIN PO SCH (09:28)
[2017-02-22] MEDS: MUCINEX PO SCH ×2 (09:29→20:13)
[2017-02-22] MEDS: TRIGLIDE PO SCH (09:29)
[2017-02-22] MEDS: TESSALON PERLES PO SCH ×3 (09:30→20:13)
[2017-02-22] MEDS: ZESTRIL PO SCH (09:30)
[2017-02-22] MEDS: NORVASC PO SCH (09:30)
[2017-02-22] MEDS: ROBITUSSIN DM SYRUP PO SCH ×2 (09:30→20:12)
[2017-02-22] MEDS: VALIUM PO SCH ×2 (09:32→20:13)
[2017-02-22] MEDS: NYSTOP POWDER TP SCH ×2 (10:24→20:13)
[2017-02-23 04:56] LABS: BASOPHILS % (AUTO) 0.2 % (0.0-3.0); HEMATOCRIT 33.5 % (37.0-47.0); HEMOGLOBIN 11.2 g/dl (12.0-16.0); LYMPHOCYTES # (AUTO) 1.8 K/uL (0.60-3.4); LYMPHOCYTES % (AUTO) 13.6 (10.0-50.0); MEAN CORPUSCULAR HEMOGLOBIN 29.5 pg (27.0-31.0); MEAN CORPUSCULAR HGB CONC 33.4 (31.8-35.4); MEAN CORPUSCULAR VOLUME 88.2 fl (81.0-99.0); MONOCYTES # (AUTO) 0.6 K/uL (0.4-2.0); MONOCYTES % (AUTO) 4.7 (0-10); NEUTROPHILS # (AUTO) 10.1 K/ul (2.0-6.9); NEUTROPHILS % (AUTO) 77.5; PLATELET COUNT 217 10^3/uL (140-440); WHITE BLOOD COUNT 12.96 K/ul (4.6-10.2)
[2017-02-23] MEDS: DUONEB NEB SCH ×3 (05:08→20:56)
[2017-02-23 05:14] LABS: ALBUMIN 2.7 g/dL (3.4-5.0); ALBUMIN/GLOBULIN RATIO 1.17; ANION GAP 13.9; BILIRUBIN,TOTAL 0.35 mg/dL (0.00-1.20); BUN/CREATININE RATIO 27.41; CALCIUM 8.6 mg/dL (8.2-10.2); CREATININE 0.62 mg/dL (0.60-1.30); POTASSIUM 3.9 mmol/L (3.5-5.10)
[2017-02-23] MEDS: HUMULIN R SUBCUT PRN ×4 (05:53→21:17)
[2017-02-23] MEDS: LASIX TAB PO SCH (05:53)
[2017-02-23] MEDS: PROTONIX PO SCH ×2 (05:53→16:22)
[2017-02-23] MEDS: SOLU-MEDROL 40 MG IVP SCH ×3 (06:40→21:16)
[2017-02-23] MEDS: COLACE PO SCH (08:09)
[2017-02-23] MEDS: ROBITUSSIN DM SYRUP PO SCH ×2 (08:09→21:17)
[2017-02-23] MEDS: VALIUM PO SCH ×2 (08:09→21:18)
[2017-02-23] MEDS: NORVASC PO SCH (08:10)
[2017-02-23] MEDS: CLARITIN PO SCH (08:10)
[2017-02-23] MEDS: MUCINEX PO SCH ×2 (08:10→21:18)
[2017-02-23] MEDS: KEFLEX PO SCH ×2 (08:10→21:17)
[2017-02-23] MEDS: TESSALON PERLES PO SCH ×3 (08:11→21:18)
[2017-02-23] MEDS: FERROUS SULFATE PO SCH ×2 (08:11→21:18)
[2017-02-23] MEDS: TRIGLIDE PO SCH (08:11)
[2017-02-23] MEDS: NYSTOP POWDER TP SCH ×2 (08:11→21:16)
[2017-02-23] MEDS: ZESTRIL PO SCH (08:14)
[2017-02-23] MEDS ORDERED: MILK OF MAGNESIA PO PRN (08:58)
[2017-02-23] MEDS: SODIUM CHLORIDE 1,000 ML IV SCH (21:16)
[2017-02-24 04:47] LABS: BASOPHILS % (AUTO) 0.2 % (0.0-3.0); EOSINOPHILS % (AUTO) 0.1 % (0.0-7.0); HEMATOCRIT 31.8 % (37.0-47.0); HEMOGLOBIN 10.6 g/dl (12.0-16.0); IMMATURE GRANULOCYTE % (AUTO) 2.9 % (0.0-5.0); LYMPHOCYTES # (AUTO) 1.6 K/uL (0.60-3.4); LYMPHOCYTES % (AUTO) 10.5 (10.0-50.0); MEAN CORPUSCULAR HEMOGLOBIN 29.9 pg (27.0-31.0); MEAN CORPUSCULAR HGB CONC 33.3 (31.8-35.4); MEAN CORPUSCULAR VOLUME 89.6 fl (81.0-99.0); MONOCYTES # (AUTO) 0.6 K/uL (0.4-2.0); MONOCYTES % (AUTO) 4.1 (0-10); NEUTROPHILS # (AUTO) 12.1 K/ul (2.0-6.9); NEUTROPHILS % (AUTO) 82.2; PLATELET COUNT 192 10^3/uL (140-440); RED BLOOD COUNT 3.55 10^6/ul (4.20-5.40)
[2017-02-24] MEDS: DUONEB NEB SCH ×2 (05:05→10:20)
[2017-02-24 05:13] LABS: ALBUMIN 2.5 g/dL (3.4-5.0); ALBUMIN/GLOBULIN RATIO 1.14; ANION GAP 9.6; BILIRUBIN,TOTAL 0.31 mg/dL (0.00-1.20); BUN/CREATININE RATIO 31.48; CALCIUM 8.4 mg/dL (8.2-10.2); CREATININE 0.54 mg/dL (0.60-1.30); POTASSIUM 4.6 mmol/L (3.5-5.10); TOTAL PROTEIN 4.7 g/dL (5.8-8.1)
[2017-02-24] MEDS: SOLU-MEDROL 40 MG IVP SCH ×2 (05:36→12:39)
[2017-02-24] MEDS: LASIX TAB PO SCH (05:37)
[2017-02-24] MEDS: PROTONIX PO SCH (05:37)
[2017-02-24] MEDS: KEFLEX PO SCH (09:00)
[2017-02-24] MEDS: VALIUM PO SCH (09:00)
[2017-02-24] MEDS: ROBITUSSIN DM SYRUP PO SCH (09:00)
[2017-02-24] MEDS: COLACE PO SCH (09:01)
[2017-02-24] MEDS: CLARITIN PO SCH (09:01)
[2017-02-24] MEDS: TRIGLIDE PO SCH (09:01)
[2017-02-24] MEDS: TESSALON PERLES PO SCH (09:01)
[2017-02-24] MEDS: FERROUS SULFATE PO SCH (09:01)
[2017-02-24] MEDS: MUCINEX PO SCH (09:01)
[2017-02-24] MEDS: NORVASC PO SCH (09:01)
[2017-02-24] MEDS: ZESTRIL PO SCH (09:01)
[2017-02-24] MEDS: NYSTOP POWDER TP SCH (09:04)
[2017-02-24 09:44] VITALS: BP 151/69; TEMP 97.3
--- NOTE | 2017-02-24 11:03 | PN ---
DATE OF SERVICE: 02/19/17 SUBJECTIVE: The patient was admitted with community acquired pneumonia and been doing fine but still having the cough and congestion and getting a lot of yellow/green phlegm. The patient is ambulatory. REVIEW OF SYSTEMS: CONSTITUTIONAL: No fever, no chills. HEENT: Normal. ENDOCRINE: No weight gain, no weight loss. CVS: No angina symptoms. No CHF symptoms. No palpitations. No atypical chest pain for CAD. No shortness of breath. No PND, no orthopnea. RESPIRATORY: No cough, no hemoptysis. GI: No nausea, no vomiting. No abdominal pain. : No hematuria. No polyuria. MUSCULOSKELETAL:. No joint swelling. PSYCHIATRIC: Not anxious. No depression. No suicidal thoughts. No homicidal thoughts. SKIN: Intact. No rash. PHYSICAL EXAMINATION: V/S: Blood pressure 159/79, respiratory rate 18, heart rate 86, temperature 98.3 with saturation 95% on the room air. HEENT: Normocephalic, atraumatic. Mucosa dry. Pallor positive. No icterus. NECK: Supple. No JVD, no carotid bruit. No lymphadenopathy. LUNGS: Decreased and basilar crackles left more than the right. No rales or rhonchi. HEART: S1, S2 normal. No S3. No murmur, gallop or regurgitation. ABDOMEN: Soft, nontender. Bowel sounds active. No rigidity. No rebound or guarding. No CVA tenderness. EXTREMITIES: No clubbing, cyanosis. 1+ edema. MUSCULOSKELETAL: No joint swelling. NEUROLOGIC: Awake, alert, oriented times three. No focal deficit. LYMPHATIC: No lymph nodes palpable. SKIN: Intact. LABS: WBC 10.56, hgb 10.3, hct 30.3, plt count 269, sodium 136, potassium 4.1, chloride 95, bicarb 32, BUN 18, creatinine 0.59. ASSESSMENT: 1. Health care acquired pneumonia 2. Large Hiatal hernia 3. History of choking and questionable aspiration 4. Hypertension 5. Dyslipidemia 6. History of right ankle fracture. PLAN: 1. Continue the DUO NEBS 2. Solu-Medrol 40mg Q 8 hours 3. Rocephin 1 gram daily 4. As for the swallow evaluation the patient did have some problem with the regurgitation. TIME SPENT: More than 35 minutes MTDD
--- NOTE | 2017-02-24 11:09 | PN ---
DATE OF SERVICE: 02/20/17 SUBJECTIVE: The patient was admitted with pneumonia. The patient has been up and about but still coughing a lot. She gets phlegm yellow to clear. REVIEW OF SYSTEMS: CONSTITUTIONAL: No fever, no chills. HEENT: Normal. ENDOCRINE: No weight gain, no weight loss. CVS: No angina symptoms. No CHF symptoms. No palpitations. No atypical chest pain for CAD. No shortness of breath. No PND, no orthopnea. RESPIRATORY: No cough, no hemoptysis. GI: No nausea, no vomiting. No abdominal pain. : No hematuria. No polyuria. MUSCULOSKELETAL:. No joint swelling. PSYCHIATRIC: Not anxious. No depression. No suicidal thoughts. No homicidal thoughts. SKIN: Intact. No rash. PHYSICAL EXAMINATION: V/S: Blood pressure 115/69, respiratory rate 16, heart rate 78, temperature 97.3 with saturation 98%. HEENT: Normocephalic, atraumatic. Mucosa dry. Pallor positive. NECK: Supple. No JVD, no carotid bruit. No lymphadenopathy. LUNGS: Decreased and basilar crackles. No rales or rhonchi. HEART: S1, S2 normal. No S3. No murmur, gallop or regurgitation. ABDOMEN: Soft, nontender. Bowel sounds active. No rigidity. No rebound or guarding. No CVA tenderness. EXTREMITIES: No clubbing, cyanosis or pedal edema. MUSCULOSKELETAL: No joint swelling. NEUROLOGIC: Awake, alert, oriented times three. No focal deficit. LYMPHATIC: No lymph nodes palpable. SKIN: Intact. LABS: Sodium 135, potassium 4.1, chloride 95, bicarb 32, BUN 16, creatinine 0.62, WBC 11.32, hgb 10.6, hct 31.4, plt count 13.4 ASSESSMENT: 1. Community acquired pneumonia 2. Hiatal hernia 3. Hypertension 4. Dyslipidemia 5. Anemia PLAN: 1. Continue the Duo Nebs 2. Continue the Rocephin and Solu-Medrol 40 Q 8 hours 3. Daily I&O's 4. No anticoagulation as patient is active 5. Stool for Occult blood test is positive for blood TIME SPENT: More than 35 minutes MTDD
--- NOTE | 2017-02-24 11:15 | PN ---
DATE OF SERVICE: 02/21/17 SUBJECTIVE: The patient is a little bit groggy and grumpy she says that she was not able to sleep good. Still coughing and getting yellow/green phlegm. REVIEW OF SYSTEMS: CONSTITUTIONAL: No fever, no chills. HEENT: Normal. ENDOCRINE: No weight gain, no weight loss. CVS: No angina symptoms. No CHF symptoms. No palpitations. No atypical chest pain for CAD. No shortness of breath. No PND, no orthopnea. RESPIRATORY: No cough, no hemoptysis. GI: No nausea, no vomiting. No abdominal pain. : No hematuria. No polyuria. MUSCULOSKELETAL:. No joint swelling. PSYCHIATRIC: Not anxious. No depression. No suicidal thoughts. No homicidal thoughts. SKIN: Intact. No rash. PHYSICAL EXAMINATION: V/S: Blood pressure 173/75, respiratory rate 20, heart rate 75, temperature 98.0 with saturation 98% on room air. HEENT: Normocephalic, atraumatic. Mucosa dry. Pallor positive. No icterus. NECK: Supple. No JVD, no carotid bruit. No lymphadenopathy. LUNGS: Decreased and basilar crackles. No rales or rhonchi. HEART: S1, S2 normal. No S3. No murmur, gallop or regurgitation. ABDOMEN: Soft, nontender. Bowel sounds active. No rigidity. No rebound or guarding. No CVA tenderness. EXTREMITIES: No clubbing, cyanosis or pedal edema. MUSCULOSKELETAL: No joint swelling. NEUROLOGIC: Awake, alert but goes back to sleep. No focal deficit. LYMPHATIC: No lymph nodes palpable. SKIN: Intact. LABS: WBC 13.28, hgb 10.9, hct 32.1, plt count 250, sodium 135, potassium 3.5, chloride 96, bicarb 29, BUN 17, creatinine 0.53, glucose 153. ASSESSMENT: 1. Change in mental status slightly 2. History of pneumonia, community acquired 3. Hiatal hernia 4. Anemia, stable 5. Hypertension 6. Dyslipidemia 7. Hyperglycemia mostly from the sugars 8. Dependant edema 9. GERD PLAN: 1. Will repeat chest x-ray 2. Start the patient on Azithromycin 3. Solu-Medrol 80mg Q 8 hours 4. IV fluids at 40ml per hour 5. U/A Will follow the patient in daily rounds. TIME SPENT: More than 35 minutes MTDD
[2017-02-24] MEDS: HUMULIN R SUBCUT PRN (12:38)
--- NOTE | 2017-02-24 14:42 | PN ---
DATE OF SERVICE: 02/22/17 SUBJECTIVE: The patient was admitted with the pneumonia and the questionable aspiration. The patient has been doing fine and still has some coughing and congestion. The patient was confused more yesterday but today is more awake and alert. REVIEW OF SYSTEMS: CONSTITUTIONAL: No fever, no chills. HEENT: Normal. ENDOCRINE: No weight gain, no weight loss. CVS: No angina symptoms. No CHF symptoms. No palpitations. No atypical chest pain for CAD. No shortness of breath. No PND, no orthopnea. RESPIRATORY: No cough, no hemoptysis. GI: No nausea, no vomiting. No abdominal pain. : No hematuria. No polyuria. MUSCULOSKELETAL:. No joint swelling. PSYCHIATRIC: Not anxious. No depression. No suicidal thoughts. No homicidal thoughts. SKIN: Intact. No rash. PHYSICAL EXAMINATION: V/S: Blood pressure 162/77, respiratory rate 18, heart rate 61, saturation 99 on 2 liters and temperature 97.5. HEENT: Normocephalic, atraumatic. Mucosa dry. Pallor positive. No icterus. NECK: Supple. No JVD, no carotid bruit. No lymphadenopathy. LUNGS: Decreased and basilar crackles are present. No rales or rhonchi. HEART: S1, S2 normal. No S3. No murmur, gallop or regurgitation. ABDOMEN: Soft, nontender. Bowel sounds active. No rigidity. No rebound or guarding. No CVA tenderness. EXTREMITIES: No clubbing, cyanosis or pedal edema. MUSCULOSKELETAL: No joint swelling. NEUROLOGIC: Awake, alert, oriented times three. No focal deficit. LYMPHATIC: No lymph nodes palpable. SKIN: Intact. LABS: Sodium 135, potassium 3.7, chloride 97, bicarb 18, BUN 0.56, WBC 13.64, hgb 12.1 , hct 35.7, plt count 229 ASSESSMENT: 1. Community acquired pneumonia 2. Question aspiration 3. Hiatal hernia 4. Hypertension 5. Dyslipidemia PLAN: 1. Continue the DUO NEBS 2. Solu-Medrol 40 Q 8 hours 3. Keflex PO twice a day 4. Out of bed to chair activity as tolerated. TIME SPENT: More than 30 minutes MTDD
--- NOTE | 2017-02-24 14:53 | PN ---
DATE OF SERVICE: 02/23/17 SUBJECTIVE: The patient was admitted with pneumonia. The patient says that the patient is coughing sometimes when she eats otherwise still getting some yellow/clear phlegm. REVIEW OF SYSTEMS: CONSTITUTIONAL: No fever, no chills. HEENT: Normal. ENDOCRINE: No weight gain, no weight loss. CVS: No angina symptoms. No CHF symptoms. No palpitations. No atypical chest pain for CAD. No shortness of breath. No PND, no orthopnea. RESPIRATORY: No cough, no hemoptysis. GI: No nausea, no vomiting. No abdominal pain. : No hematuria. No polyuria. MUSCULOSKELETAL:. No joint swelling. PSYCHIATRIC: Not anxious. No depression. No suicidal thoughts. No homicidal thoughts. SKIN: Intact. No rash. PHYSICAL EXAMINATION: V/S: Blood pressure 171/69, respiratory rate 18, heart rate 58, temperature 96.7 with saturation 100%. HEENT: Normocephalic, atraumatic. Mucosa dry. Pallor positive. No icterus. NECK: Supple. No JVD, no carotid bruit. No lymphadenopathy. LUNGS: Basilar crackles. No rales or rhonchi. HEART: S1, S2 normal. No S3. No murmur, gallop or regurgitation. ABDOMEN: Soft, nontender. Bowel sounds active. No rigidity. No rebound or guarding. No CVA tenderness. EXTREMITIES: No clubbing, cyanosis or pedal edema. MUSCULOSKELETAL: No joint swelling. NEUROLOGIC: Awake, alert, oriented times three. No focal deficit. LYMPHATIC: No lymph nodes palpable. SKIN: Intact. LABS: WBC 12.96, hgb 11.2, hct 33.5, plt count 217, sodium 134, potassium 3.9, chloride 96, bicarb 28, BUN 17, creatinine 0.62 ASSESSMENT: 1. Community acquired pneumonia 2. Hiatal hernia 3. Hypertension 4. Dyslipidemia 5. Anemia PLAN: 1. Continue the Keflex 2. Increase the Lisinopril to 20mg daily 3. DUO NEBS 4. Solu-Medrol 40mg Q 12 hours 5. Fall precautions discussed Will follow the patient in daily rounds. TIME SPENT: More than 35 minutes MTDD
--- NOTE | 2017-03-07 13:46 | DS ---
DATE OF SERVICE: 02/24/17 FINAL DIAGNOSIS: 1. COMMUNITY ACQUIRED PNEUMONIA 2. HIATAL HERNIA 3. HISTORY OF THEODORE'S ESOPHAGUS 4. ANEMIA 5. RECENT HISTORY OF RIGHT ANKLE FRACTURE 6. HYPERTENSION 7. ANXIETY 8. CONSTIPATION DISCHARGE INSTRUCTIONS: 1. Will discharge patient back to assisted living facility. MEDICATIONS AT DISCHARGE: 1. Lisinopril 2. Norvasc 3. Diazepam 4. Docusate Sodium 5. Nexium 6. Fenofibrate 7. Ferrous Sulfate 8. Lasix 9. Loratadine NEW PRESCRIPTIONS: 1. Keflex 500 mg twice a day for 7 days 2. Prednisone 10 mg twice a day for five days 3. Duoneb treatment three times a day for a month 4. [facility] will deliver a nebulizer to the patient's home and bedside commode. 5. [facility] DIET INSTRUCTIONS: Cardiac and healthy ACTIVITY: As much as tolerated. SMOKING: Former smoker DISEASE SPECIFIC EDUCATION: COPD, risk of pneumonia, use of pneumonia vaccination discussed. Antibiotic use and diarrhea discussed. HOSPITAL COURSE: This is an 81-year-old female, who was recently discharged from the hospital came to the office with cough and congestion, shortness of breath. CT of the chest done at time of admission which showed pneumonia, airway thickening and moderate to large hiatal hernia with the fluid inside the lumen. The patient was started on Rocephin and Vancomycin as the patient was recently at the residential for more than 1 to 2 months. The patient had a tibia/fibula fracture for which the patient was seeing an orthopaedic surgeon and he cleared the patient for ambulation. The patient was on antibiotics. Consultation obtained and there was a question of choking. We did swallow and dyphagia evaluation. This did not show any problem with swallow evaluation. At that time , the patient was continued with regular diet. Hospital course was lengthy attributing to the patient's age and not been responding well, she kept coughing with yellow to whitish sputum production. The patient gradually started feeling better with steroids and breathing treatment. Stool for occult test, one test was positive. Hemoglobin and hematocrit have been stable. She did not have any complications during the hospital stay. Chest x-ray done on showed trace right pleural efffusion, mild bibasilar atelectasis or pneumonia , mildly improved on the left side. The patient is being discharged as the patient is better than on previous days, up and about walking, did not have any problems, still having weakness. I did explain that this would continue for at least one more month in view of IV steroids. She verbalized understanding. At that time, the patient was discharged back to assisted living facility. TIME SPENT: MORE THAN 55 MINUTES today CANDE
== END 2017-02-24 13:32 | disposition home or self-care (01) | DRG 194 ==
LOC: MEDSURG B 10:12
PROVIDERS: ADMIT Emergency Medicine; ATTEND Emergency Medicine
DX: J18.9 Pneumonia, unspecified organism (principal); J91.8 Pleural effusion in other conditions classified elsewhere; J06.9 Acute upper respiratory infection, unspecified; K44.9 Diaphragmatic hernia without obstruction or gangrene; K21.9 Gastro-esophageal reflux disease without esophagitis; D64.9 Anemia, unspecified; I10 Essential (primary) hypertension; F41.9 Anxiety disorder, unspecified; K59.00 Constipation, unspecified; I25.10 Atherosclerotic heart disease of native coronary artery without angina pectoris; R19.5 Other fecal abnormalities; R41.82 Altered mental status, unspecified; R60.0 Localized edema; Z87.81 Personal history of (healed) traumatic fracture; Z87.19 Personal history of other diseases of the digestive system; Z79.899 Other long term (current) drug therapy
CPT/HCPCS: 36415; 80053; 81001; 82272; 82550; 82962; 83036; 84484; 85025; 94640